=== PATIENT | female | born 1995 | race Caucasian/White ===

== ENCOUNTER 2023-08-23 15:43 | Inpatient (IN) | payer BC ==
[2023-08-23 16:03] VITALS: BMI 21.0
[2023-08-23 16:55] LABS: HEMATOCRIT 50.3 % (32.4-45.2); HEMOGLOBIN 16.3 GM/dL (10.7-15.3); MCHC 32.4 g/dl (32.0-36.0); MEAN CELL VOLUME 104.8 fl (80-96); MEAN PLT VOLUME 7.7 fl (7.5-11.1); PLATELET COUNT 288 10^3/uL (134-434); RDW 17.1 % (11.6-15.6); WHITE BLOOD COUNT 13.4 K/mm3 (4.0-10.0)
[2023-08-23] MEDS ORDERED: ACETAMINOPHEN INJECTION 100 ML IVPB ONE (16:58)
[2023-08-23] MEDS ORDERED: ONDANSETRON 4 MG/2 ML VIAL ONE (16:58)
[2023-08-23 17:09] LABS: ACTIVATED PTT 31.9 SECONDS (25.2-36.5); INR 0.97 (0.83-1.09); PROTHROMBIN TIME (PATIENT) 11.2 SEC (9.7-13.0)
[2023-08-23] MEDS: SODIUM CHLORIDE 1,000 ML IV STA (17:10)
[2023-08-23] MEDS: ACETAMINOPHEN 1000 MG/100 ML BAG IVPB ONE (17:10)
[2023-08-23] MEDS: ONDANSETRON 4 MG/2 ML VIAL IVPUSH ONE ×2 (17:10→18:23)
[2023-08-23 17:14] LABS: POTASSIUM 5.1 mmol/L (3.5-5.1)
[2023-08-23 17:16] LABS: CALCIUM 9.9 mg/dL (8.5-10.1); MAGNESIUM 2.2 mg/dL (1.8-2.4)
[2023-08-23 17:17] LABS: ALBUMIN 5.2 g/dl (3.4-5.0); BLOOD UREA NITROGEN 15.4 mg/dL (7-18)
[2023-08-23 17:19] LABS: CREATININE 0.8 mg/dL (0.55-1.3)
[2023-08-23 17:20] LABS: BILIRUBIN,DIRECT 0.3 mg/dL (0.0-0.2)
[2023-08-23 17:22] LABS: LACTIC ACID 13.6 mmol/L (0.4-2.0)
[2023-08-23 17:22] LABS: BILIRUBIN,TOTAL 0.8 mg/dL (0.2-1)
[2023-08-23 17:27] LABS: ANISOCYTOSIS 1+; MACROCYTOSIS 1+
[2023-08-23] MEDS: SODIUM CHLORIDE 0.9% 500 ML INFUS.BAG IV ONE (18:02)
[2023-08-23] MEDS ORDERED: morphine SULFATE 4 MG/ML VIAL ONE (18:04)
[2023-08-23] MEDS ORDERED: PIPERACILLIN/TAZOB 4.5 GM 4.5 GM/100 ML BAG IVPB ONE (18:08)
[2023-08-23] MEDS: morphine CARPU-JECT 4 MG/1 ML DISP.SYRIN IVPUSH ONE (18:21)
[2023-08-23] MEDS: PIPERACILLIN/TAZOB 4.5 GM 4.5 GM in DEXTROSE 5%-WATER 100 ML IVPB ONE (18:22)
[2023-08-23] MEDS ORDERED: LACTATED RINGERS SOLUTION 1,000 ML/1,000 ML INFUS.BAG IV SCH (20:15)
[2023-08-23 20:54] LABS: EPI CELLS 17 /uL (0-25.1); HYALINE CASTS 0 /uL (0-3.1); PH,URINE 5.5 (5.0-8.0); URINE APPEARANCE CLEAR; URINE BACTERIA 249 /uL (0-1359); URINE BILIRUBIN NEGATIVE (NEGATIVE); URINE COLOR YELLOW; URINE GLUCOSE (UA) NEGATIVE (NEGATIVE); URINE KETONE 3+ (NEGATIVE); URINE LEUK ESTERASE NEGATIVE (NEGATIVE); URINE NITRITE NEGATIVE (NEGATIVE); URINE PROTEIN 1+ (NEGATIVE); URINE RBC 4 /uL (0-23.9); URINE UROBILINOGEN 0.2 mg/dL (0.2-1.0); URINE WBC 3 /uL (0-25.8)
[2023-08-23 21:18] LABS: LACTIC ACID 4.6 mmol/L (0.4-2.0)
[2023-08-23] MEDS ORDERED: HYDROmorphone HCl 2 MG/ML VIAL ONE (22:06)
[2023-08-23] MEDS: HYDROmorphone HCL 2 MG TABLET PO ONE (22:19)
[2023-08-23] MEDS: DEXTROSE 5%-NORMAL SALINE 1,000 ML IV ONE (22:19)
[2023-08-24] MEDS ORDERED: ACETAMINOPHEN INJECTION 100 ML IVPB ONE (00:35)
[2023-08-24] MEDS: ACETAMINOPHEN 1000 MG/100 ML BAG IVPB ONE (00:41)
[2023-08-24] MEDS ORDERED: PIPERACILLIN/TAZOB 3.375 GM 3.375 GM in DEXTROSE 5%-WATER - 50 ML IVPB SCH (02:00)
[2023-08-24] MEDS ORDERED: PIPERACILLIN/TAZOB 3.375 GM 3.375 GM/50 ML BAG IVPB ONE (02:37)
[2023-08-24] MEDS: PIPERACILLIN/TAZOB 3.375 GM 3.375 GM in DEXTROSE 5%-WATER - 50 ML IVPB SCH (02:41)
[2023-08-24] MEDS: SODIUM CHLORIDE 1,000 ML IV SCH (06:02)
[2023-08-24 08:27] VITALS: RESP 18
[2023-08-24 08:58] LABS: HEMATOCRIT 40.8 % (32.4-45.2); HEMOGLOBIN 13.8 GM/dL (10.7-15.3); MCH 34.8 pg (25.7-33.7); MCHC 33.8 g/dl (32.0-36.0); MEAN CELL VOLUME 102.9 fl (80-96); MEAN PLT VOLUME 7.6 fl (7.5-11.1); PLATELET COUNT 166 10^3/uL (134-434); RBC 3.97 M/mm3 (3.60-5.2); RDW 16.7 % (11.6-15.6); WHITE BLOOD COUNT 5.6 K/mm3 (4.0-10.0)
[2023-08-24 09:09] LABS: POTASSIUM 3.7 mmol/L (3.5-5.1)
[2023-08-24 09:11] LABS: BLOOD UREA NITROGEN 9.6 mg/dL (7-18); MAGNESIUM 1.8 mg/dL (1.8-2.4)
[2023-08-24 09:15] LABS: CREATININE 0.5 mg/dL (0.55-1.3)
[2023-08-24 09:16] LABS: CALCIUM 8.2 mg/dL (8.5-10.1)
[2023-08-24 10:22] LABS: HIV INTERPRETATION NEGATIVE (NEGATIVE)
[2023-08-24] MEDS ORDERED: TRIMETHOBENZAMIDE HCL 200MG/2ML INJ IM PRN (19:45)
[2023-08-25 11:27] LABS: BASO % 0.3 % (0-2.0); EOS % 0.1 % (0-4.5); HEMATOCRIT 39.1 % (32.4-45.2); HEMOGLOBIN 13.1 GM/dL (10.7-15.3); LYMPH % 27.9 % (8-40); MCH 34.5 pg (25.7-33.7); MCHC 33.5 g/dl (32.0-36.0); MEAN CELL VOLUME 102.8 fl (80-96); MEAN PLT VOLUME 8.3 fl (7.5-11.1); NEUT % 64.7 % (42.8-82.8); PLATELET COUNT 135 10^3/uL (134-434); RDW 15.7 % (11.6-15.6); WHITE BLOOD COUNT 3.4 K/mm3 (4.0-10.0)
[2023-08-25 11:47] LABS: CHLORIDE 104 mmol/L (98-107); POTASSIUM 3.2 mmol/L (3.5-5.1); SODIUM 139 mmol/L (136-145)
[2023-08-25 11:49] LABS: ANION GAP 8 mmol/L (4-13); CALCIUM 8.5 mg/dL (8.5-10.1); CO2 27 mmol/L (21-32); GLUCOSE,RANDOM 90 mg/dL (74-106)
[2023-08-25 11:52] LABS: CREATININE 0.5 mg/dL (0.55-1.3); SGPT/ALT 46 U/L (13-61)
[2023-08-25 11:53] LABS: SGOT/AST 59 U/L (15-37)
[2023-08-25 12:03] LABS: ALBUMIN 3.8 g/dl (3.4-5.0); ALK PHOS 141 U/L (45-117); BLOOD UREA NITROGEN 2.6 mg/dL (7-18)
[2023-08-25 12:40] LABS: COCAINE, UR NEGATIVE (NEGATIVE)
[2023-08-25 12:41] LABS: METHADONE, UR NEGATIVE (NEGATIVE); OPIATES, URI NEGATIVE (NEGATIVE); URINE BARBITURATES NEGATIVE (NEGATIVE); URINE BENZODIAZEPINES NEGATIVE (NEGATIVE)
[2023-08-25 12:42] LABS: PHENCYCLIDINE,URINE NEGATIVE (NEGATIVE)
[2023-08-25 12:54] LABS: URINE AMPHETAMINES NEGATIVE (NEGATIVE)
[2023-08-25] MEDS: POTASSIUM CHLORIDE ORAL LIQUID 20 MEQ/15 ML PO ONE (14:33)
[2023-08-25 18:49] VITALS: BP 122/83; PULSE 66; TEMP 99.1
== END 2023-08-25 19:17 | disposition home or self-care (01) | DRG 282 ==
LOC: JER 15:43 → JERBED 17:57 → J5S 08-24 05:51
PROVIDERS: ADMIT Internal Medicine
DX: K85.90 Acute pancreatitis without necrosis or infection, unspecified (principal); J45.909 Unspecified asthma, uncomplicated; G80.9 Cerebral palsy, unspecified; E87.20 Acidosis, unspecified; E86.0 Dehydration; R74.01 Elevation of levels of liver transaminase levels; F12.90 Cannabis use, unspecified, uncomplicated
CPT/HCPCS: 36415; 74181-TC; 76705-TC; 80048; 80053; 80307; 81003; 82248; 82962; 83605; 83690; 83735; 84100; 84478; 84703; 85025; 85027; 85610; 85730; 86704; 86708; 86803; 86850; 86900; 86901; 87340; 87389; 87491; 87517; 87591; 87661; 93005; 93010; 99285-25; J0131

== ENCOUNTER 2024-01-06 18:46 | Inpatient (IN) | payer BC, OTHER ==
[2024-01-06 18:55] VITALS: BMI 20.1
[2024-01-06] MEDS ORDERED: ACETAMINOPHEN INJECTION 100 ML ONE (19:47)
[2024-01-06] MEDS ORDERED: ONDANSETRON 4 MG/2 ML VIAL ONE (19:47)
[2024-01-06] MEDS: ONDANSETRON 4 MG TABLET PO ONE (19:51)
[2024-01-06] MEDS: ONDANSETRON 4 MG/2 ML VIAL IVPB ONE (19:51)
[2024-01-06] MEDS: ACETAMINOPHEN 1000 MG/100 ML BAG IVPB ONE (19:51)
[2024-01-06 19:58] LABS: BASO % 0.3 % (0-2.0); HEMATOCRIT 43.3 % (32.4-45.2); HEMOGLOBIN 14.7 GM/dL (10.7-15.3); LYMPH % 10.2 % (8-40); MCH 35.8 pg (25.7-33.7); MCHC 34.1 g/dl (32.0-36.0); MEAN CELL VOLUME 105.2 fl (80-96); MEAN PLT VOLUME 7.5 fl (7.5-11.1); MONO % 9.6 % (3.8-10.2); NEUT % 79.9 % (42.8-82.8); PLATELET COUNT 233 10^3/uL (134-434); RBC 4.12 M/mm3 (3.60-5.2); RDW 19.6 % (11.6-15.6); WHITE BLOOD COUNT 7.2 K/mm3 (4.0-10.0)
[2024-01-06 20:10] LABS: HCG,QUALITATIVE URINE Negative
[2024-01-06 20:16] LABS: POTASSIUM 3.4 mmol/L (3.5-5.1)
[2024-01-06 20:19] LABS: CALCIUM 10.2 mg/dL (8.5-10.1)
[2024-01-06 20:23] LABS: CREATININE 0.6 mg/dL (0.55-1.3)
[2024-01-06 20:25] LABS: TOT PROT 8.8 g/dl (6.4-8.2)
[2024-01-06 21:00] LABS: URINE APPEARANCE CLEAR; URINE COLOR ORANGE
[2024-01-06 21:01] LABS: URINE BILIRUBIN NEGATIVE (NEGATIVE); URINE GLUCOSE (UA) NEGATIVE (NEGATIVE); URINE KETONE 80 (NEGATIVE); URINE LEUK ESTERASE NEGATIVE (NEGATIVE); URINE NITRITE NEGATIVE (NEGATIVE); URINE PROTEIN 100 (NEGATIVE)
[2024-01-06 21:08] LABS: ANISOCYTOSIS 1+; MACROCYTOSIS 2+
[2024-01-06] MEDS: LACTATED RINGERS SOLUTION 1000 ML INFUS.BAG IV ONE (21:45)
[2024-01-06] MEDS ORDERED: MORPHINE SULFATE 2 MG/ML SYRINGE ONE (21:45)
[2024-01-06] MEDS: morphine SULFATE 4 MG/ML VIAL IVPUSH ONE (21:53)
[2024-01-07] MEDS: LACTATED RINGERS SOLUTION 1,000 ML/1,000 ML INFUS.BAG IV SCH (01:16)
[2024-01-07] MEDS: POTASSIUM CHLORIDE ORAL LIQUID 20 MEQ/15 ML PO ONE (01:25)
[2024-01-07] MEDS ORDERED: ALBUTEROL SO4 2.5/IPRATROPIUM 0.5 INH SOL 3 ML VIAL.NEB. NEB PRN (05:59)
[2024-01-07] MEDS: THIAMINE 100 MG TABLET PO SCH (10:12)
[2024-01-07] MEDS: FOLIC ACID 1 MG TABLET (FP) PO SCH (10:12)
[2024-01-07 10:31] LABS: HEMATOCRIT 39.7 % (32.4-45.2); HEMOGLOBIN 13.3 GM/dL (10.7-15.3); MCH 35.9 pg (25.7-33.7); MCHC 33.6 g/dl (32.0-36.0); MEAN CELL VOLUME 106.8 fl (80-96); MEAN PLT VOLUME 7.9 fl (7.5-11.1); PLATELET COUNT 174 10^3/uL (134-434); RBC 3.71 M/mm3 (3.60-5.2); RDW 19.2 % (11.6-15.6); WHITE BLOOD COUNT 4.2 K/mm3 (4.0-10.0)
[2024-01-07 10:52] LABS: POTASSIUM 3.9 mmol/L (3.5-5.1)
[2024-01-07 11:14] LABS: CALCIUM 9.5 mg/dL (8.5-10.1)
[2024-01-07 11:16] LABS: BLOOD UREA NITROGEN 3.8 mg/dL (7-18); MAGNESIUM 1.6 mg/dL (1.8-2.4)
[2024-01-07 11:18] LABS: BILIRUBIN,DIRECT 0.4 mg/dL (0.0-0.2); CREATININE 0.4 mg/dL (0.55-1.3); PHOSPHOROUS 2.9 mg/dL (2.5-4.9)
[2024-01-07 11:21] LABS: BILIRUBIN,TOTAL 1.2 mg/dL (0.2-1)
[2024-01-07 11:22] LABS: TOT PROT 7.1 g/dl (6.4-8.2)
[2024-01-07 15:47] VITALS: BP 155/99; PULSE 70; RESP 16; TEMP 99.9
== END 2024-01-07 17:33 | disposition home or self-care (01) | DRG 282 ==
LOC: JER 18:46 → JERBED 21:20 → OBSVTOIN 01-07 01:26 → J5S 01-07 03:00
PROVIDERS: ADMIT Internal Medicine
DX: K85.20 Alcohol induced acute pancreatitis without necrosis or infection (principal); F10.90 Alcohol use, unspecified, uncomplicated; F12.90 Cannabis use, unspecified, uncomplicated; F17.210 Nicotine dependence, cigarettes, uncomplicated; J45.909 Unspecified asthma, uncomplicated; G80.9 Cerebral palsy, unspecified
CPT/HCPCS: 36415; 76705-TC; 80053; 81003; 82248; 82728; 83540; 83550; 83690; 83735; 84100; 84703; 85025; 85027; 87086; 93005; 93010; 99285-25; G0378; J0131